=== PATIENT | female | born 2000 | race Caucasian/White ===

== ENCOUNTER 2023-02-22 11:06 | Emergency (ER) | payer OTHER ==
[~2023-02-22] VITALS: Ht 162.6 cm; Wt 70.9 kg
[2023-02-22] MEDS ORDERED: IBUP200T46 PO (11:22)
[2023-02-22] MEDS ORDERED: methocarbamoL 500 MG TAB PO ONE (12:20)
[2023-02-22] MEDS ORDERED: LIDOCAINE 5% (LIDODERM) PATCH TD ONE (12:20)
[2023-02-22] MEDS ORDERED: KETOROLAC 30 MG/ML 1ML VIAL IM ONE (12:20)
[2023-02-22] MEDS ORDERED: KETOROLAC 30 MG/ML 1ML VIAL IV ONE (12:20)
[2023-02-22] MEDS ORDERED: IBUP-1022 PO (13:28)
[2023-02-22] MEDS ORDERED: METH-1164 PO (13:28)
[2023-02-22] MEDS ORDERED: LIDO5DIS41 TD (13:28)
[2023-02-22 13:35] VITALS: BP 111/55; TEMP 97.8; O2SAT 99
== END 2023-02-22 13:37 | disposition home or self-care (01) ==
LOC: M ED 11:06
DX: M54.9 Dorsalgia, unspecified (principal)
CPT/HCPCS: 96372; 99283; J1885

== ENCOUNTER → 2024-07-20 | Outpatient (REF) | payer OTHER ==
[~2024-07-20] MED LIST: IBUP-1022 PO; IBUP200T46 PO; LIDO1ADH93 TD; METH-1164 PO
== END ==
LOC: M LAB REF 17:06
PROVIDERS: ATTEND Nurse Practitioner Adult Health
DX: R30.0 Dysuria (principal)